=== PATIENT | female | born 1950 | race Caucasian/White ===

== ENCOUNTER 2019-01-28 19:49 | Emergency (ER) | payer MEDICARE ==
[2019-01-28 20:49] VITALS: BP 149/82; PULSE 72; O2SAT 98
--- NOTE | 2019-01-28 21:07 | ERPHSYRPT ---
- History of Present Illness Time Seen by Provider: 01/28/19 20:49 Source: patient Patient Subjective Stated Complaint: pt reports pain, numbness, swelling to the left hand, reports hand surgery wednesday 01/[address] Strong at [facility]. states the procedure was to removed a cyst to the dorsal wrist and "shave the bone down". reports she noticed swelling 01/25 but did not contact the surgeon. states the pain got so bad today she could not stand it any longer Triage Nursing Assessment: pt is aox3, pupils perrl, afebrile, resps easy and non labored, right radial pulse strong, left hand/wrist is casted at this time unable to asses pulse, cap refill is < 3 seconds, parethesia noted to the left fingers, skin is warm to touch, skin is intact, mdoerate swelling noted to the dorsal left hand and fingers, yellow/green bruising also noted. Physician History: PATIENT UNDER WENT LEFT WRIST SURGERY ON 01/24/2019, AND COMPLAINS OF FINGER SWELLING AND NUMBNESS 2 DAYS AFTER HER SURGERY. Occurred: days ago (3) Severity of Pain-Max: moderate Severity of Pain-Current: moderate Extremities Pain Location: forearm: left, wrist: left Modifying Factors: Improves With: movement Associated Symptoms: none Allergies/Adverse Reactions: cephalexin monohydrate [From Keflex] Allergy (Verified 01/28/19 20:49) Hives Home Medications: Diclofenac Sodium 75 mg PO BID 01/25/12 [History] Ergocalciferol (Vitamin D2) [Vitamin D] 50,000 unit PO WEEKLY 01/25/12 [History] Guaifenesin [Mucinex] 1,200 mg PO Q12H PRN PRN 01/25/12 [History] Hydrochlorothiazide 25 mg [hydroDIURIL 25 MG] 25 mg PO DAILY 01/25/12 [ History] Hydrocodone Bit/Acetaminophen [Hydrocodon-Acetaminoph 7.5-500] 1 each PO Q4H PRN PRN 01/25/12 [History] Hydrocodone/APAP 5/500 mg [Vicodin 5/500 MG] 1 tab PO Q4HPRN PRN 01/25/12 [ History] Metoprolol Succinate 100 mg [Toprol Xl 100 MG] 100 mg PO BID 01/25/12 [ History] Mu-Vits-Min Th/Lycopene/Lutein [Centrum Silver Tablet] 1 each PO DAILY 01/25/12 [History] Omeprazole 20 MG [Prilosec 20 mg] 20 mg PO DAILY 01/25/12 [History] Venlafaxine HCl [Effexor Xr] 150 mg PO DAILY 01/25/12 [History] Venlafaxine HCl [Effexor Xr] 150 mg PO DAILY 01/25/12 [History] Metoprolol Succinate 100 mg [Toprol Xl 100 MG] BID 01/26/12 [History] Hx Tetanus, Diphtheria Vaccination/Date Given: Yes Hx Influenza Vaccination/Date Given: No Hx Pneumococcal Vaccination/Date Given: No Immunizations Up to Date: Yes - Review of Systems Musculoskeletal: Joint Pain, Other (SWOLLEN FINGERS) - Past Medical History Pertinent Past Medical History: Yes Neurological History: Migraines, Peripheral Neuropathy ENT History: Cataracts Cardiac History: Hypertension Respiratory History: No Pertinent History Endocrine Medical History: Diabetes Type II, Other Musculoskeletal History: Osteoarthritis GI Medical History: GERD History: No Pertinent History Psycho-Social History: Depression Female Reproductive Disorders: No Pertinent History Other Medical History: nodules on thyroid, did have problems with her kidneys in the past. - Past Surgical History Past Surgical History: Yes Neuro Surgical History: No Pertinent History Cardiac: No Pertinent History Respiratory: No Pertinent History Gastrointestinal: No Pertinent History Genitourinary: No Pertinent History Musculoskeletal: Orthopedic Surgery, Other Female Surgical History: No Pertinent History Other Surgical History: LT WRIST X2. hand surgery 01/24/19 - Social History Smoking Status: Never smoker Drug Use: none Patient Lives Alone: Yes - Female History Hx Now: No - Nursing Vital Signs Nursing Vital Signs: Initial Vital Signs Temperature 98.6 F 01/28/19 20:37 Pulse Rate 72 01/28/19 20:37 Respiratory Rate 18 01/28/19 20:37 Blood Pressure 149/82 01/28/19 20:37 O2 Sat by Pulse Oximetry 98 01/28/19 20:37 Pain Scale Pain Intensity 10 - Physical Exam General Appearance: no apparent distress Hand Exam: swelling (IN ALL FINGERS, FULL RANGE OF MOTION ALL DIGITS, SENSORY INTACT TO LIGHT TOUCH AND PINPRICK, DORSAL AND VOLAR SPLINT INTACT WITH MARISSA BANDAGE) SpO2: 98 - Progress Progress Note: 01/28/19 21:13 ADMINISTERED ARM SLING - Departure Departure Disposition: Home Clinical Impression: POST OPERATIVE WRIST SURGERY, LEFT WRIST PAIN Condition: Stable Critical Care Time: No Referrals: DOCTOR,NO FAMILY [Primary Care Provider] - Additional Instructions: FOLLOWUP WITH YOUR HAND SURGEON TOMORROW SCHEDULED FOR EVALUATION. WEAR ARM SLING FOR COMFORT. ELEVATE HAND WHILE SITTING OR SUPINE POSITION.
== END 2019-01-28 21:21 | disposition home or self-care (01) ==
LOC: ED 19:49
DX: M25.532 Pain in left wrist (principal); G89.18 Other acute postprocedural pain; M79.89 Other specified soft tissue disorders
CPT/HCPCS: 99283

== ENCOUNTER 2024-09-10 13:00 | Emergency (ER) | payer MEDICARE ==
--- NOTE | 2024-09-10 13:25 | ERPHSYRPT ---
- History of Present Illness Time Seen by Provider: 09/10/24 13:25 Historian: patient Exam Limitations: no limitations Physician History: This is a thin 74-year-old white female patient brought into the emergency department by private vehicle and dropped off by her neighbor in the apartment complex she lives in. Patient is giving the nurse and myself conflicting prima ry reasons why the patient is here. She told the nurse that she has headache and fatigue. There is been diarrhea for the last 3 weeks intermittently. She told me that she has a little bit of chest pain on the left side that is nonradiating and described as an ache. She states she has not had a cough and she has not had fever. Patient has a history of depression, gastroesophageal reflux disease, hypertension, migraine headaches, peripheral neuropathy, COPD, arrhythmias and diabetes Timing/Duration: today Activities at Onset: none Quality: aching (Left anterior chest) Abdominal Pain Onset Location: other Pain Radiation: no radiation ( nonradiating) Severity of Pain-Max: none (No abdominal pain) Severity of Pain-Current: none Modifying Factors: Worsens With: vomiting Associated Symptoms: diarrhea, headache, weakness, other (Body aches), No vomiting Previous symptoms: no prior history, no recent treatment Allergies/Adverse Reactions: cephalexin monohydrate [From Keflex] Allergy (Verified 09/10/24 13:30) Hives Home Medications: Diclofenac Sodium 75 mg PO BID 01/25/12 [History] Ergocalciferol (Vitamin D2) [Vitamin D] 50,000 unit PO WEEKLY 01/25/12 [History] Guaifenesin [Mucinex] 1,200 mg PO Q12H PRN PRN 01/25/12 [History] Hydrochlorothiazide 25 mg [hydroDIURIL 25 MG] 25 mg PO DAILY 01/25/12 [History] Hydrocodone/APAP 5/500 mg [Vicodin 5/500 MG] 1 tab PO Q4HPRN PRN 01/25/12 [History] Hydrocodone/Acetaminophen [Hydrocodon-Acetaminoph 7.5-500] 1 each PO Q4H PRN PRN 01/25/12 [History] Metoprolol Succinate 100 mg [Toprol Xl 100 MG] 100 mg PO BID 01/25/12 [History] Mu-Vits-Min Th/Lycopene/Lutein [Centrum Silver Tablet] 1 each PO DAILY 01/25/12 [History] Omeprazole 20 MG [Prilosec 20 mg] 20 mg PO DAILY 01/25/12 [History] Venlafaxine HCl [Effexor Xr] 150 mg PO DAILY 01/25/12 [History] Venlafaxine HCl [Effexor Xr] 150 mg PO DAILY 01/25/12 [History] Metoprolol Succinate 100 mg [Toprol Xl 100 MG] BID 01/26/12 [History] Hx Tetanus, Diphtheria Vaccination/Date Given: Yes Hx Influenza Vaccination/Date Given: No Hx Pneumococcal Vaccination/Date Given: No Travel Risk - International Travel Have you traveled outside of the country in past 3 weeks: No - Emerging Infectious Disease Are you exhibiting symptoms associated with any current EIDs: No - Review of Systems Constitutional: Fatigue, Weakness Eyes: No Symptoms Ears, Nose, & Throat: No Symptoms Respiratory: No Symptoms Cardiac: Chest Pain (Left anterior nonradiating ache) Abdominal/Gastrointestinal: No Symptoms Genitourinary Symptoms: No Symptoms Musculoskeletal: No Symptoms Skin: No Symptoms Neurological: No Symptoms Psychological: No Symptoms Endocrine: No Symptoms Hematologic/Lymphatic: No Symptoms Immunological/Allergic: No Symptoms All Other Systems: Reviewed and Negative - Past Medical History Pertinent Past Medical History: Yes Neurological History: Migraines, Peripheral Neuropathy ENT History: Cataracts Cardiac History: Arrhythmia Respiratory History: COPD Endocrine Medical History: Diabetes Type II Musculoskeletal History: Arthritis GI Medical History: GERD History: No Pertinent History Psycho-Social History: Depression Female Reproductive Disorders: No Pertinent History Other Medical History: nodules on thyroid, did have problems with her kidneys in the past. - Past Surgical History Past Surgical History: Yes Neuro Surgical History: No Pertinent History Cardiac: No Pertinent History Respiratory: No Pertinent History Gastrointestinal: No Pertinent History Genitourinary: No Pertinent History Musculoskeletal: Orthopedic Surgery, Other Female Surgical History: No Pertinent History Other Surgical History: LT WRIST X2. hand surgery 01/24/19 - Social History Smoking Status: Never smoker Drug Use: none Patient Lives Alone: Yes - Nursing Vital Signs Nursing Vital Signs: Initial Vital Signs Temperature 98.8 F 09/10/24 13:12 Pulse Rate 48 L 09/10/24 13:12 Respiratory Rate 20 09/10/24 13:12 Blood Pressure 142/64 09/10/24 13:12 O2 Sat by Pulse Oximetry 98 09/10/24 13:12 Pain Scale Pain Intensity 5 - Physical Exam General Appearance: no apparent distress, alert, thin Eye Exam: PERRL/EOMI, eyes nml inspection Ears, Nose, Throat Exam: normal ENT inspection, moist mucous membranes Neck Exam: normal inspection, non-tender, supple, full range of motion Respiratory Exam: normal breath sounds, lungs clear, airway intact, No chest tenderness, No respiratory distress Cardiovascular Exam: regular rate/rhythm, normal heart sounds, normal peripheral pulses Gastrointestinal/Abdomen Exam: soft, normal bowel sounds, No tenderness Pelvic Exam: not done Rectal Exam: not done Back Exam: normal inspection, normal range of motion, No CVA tenderness, No vertebral tenderness Extremity Exam: normal inspection, normal range of motion, pelvis stable Neurologic Exam: alert, cooperative, combustion analyst II-XII nml as tested, nml cerebellar function, nml station & gait, sensation nml, other (She is oriented to self and location. She is somewhat confused on dates and timings ) Skin Exam: normal color, warm, dry Lymphatic Exam: No adenopathy SpO2 Interpretation: normal O2 Delivery: Room Air - Course Nursing assessment & vital signs reviewed: Yes Ordered Tests: Active Orders 24 hr Category Date Time Status EKG-ER Only STAT Care 09/10/24 13:50 Active IV Insertion STAT Care 09/10/24 13:50 Active HEAD WITHOUT CONTRAST [CT] Stat Exams 09/10/24 14:25 Completed BLOOD CULTURE Stat Lab 09/10/24 14:09 Received CBC W DIFF Stat Lab 09/10/24 14:00 Completed CMP Stat Lab 09/10/24 14:00 Completed MONO SCREEN Stat Lab 09/10/24 14:04 Completed TROPONIN Q4H Lab 09/10/24 14:00 Completed TROPONIN Q4H Lab 09/10/24 18:00 Ordered TROPONIN Q4H Lab 09/10/24 22:00 Ordered UA W/RFX UR CULTURE Stat Lab 09/10/24 14:18 Completed Medication Summary Generic Name Dose Route Start Last Admin Trade Name Freq PRN Reason Stop Dose Admin Sodium Chloride 1,000 mls @ 250 mls/hr 09/10/24 14:00 09/10/24 13:57 Sodium Chloride 0.9% 1000 Ml IV 10/10/24 13:59 250 mls/hr .Q4H SHELLEY Administration Discontinued Medications Generic Name Dose Route Start Last Admin Trade Name Freq PRN Reason Stop Dose Admin Azithromycin 500 mg 09/10/24 15:40 Azithromycin 250 Mg Tablet PO 09/10/24 15:41 STAT ONE Sodium Chloride Confirm 09/10/24 13:55 Sodium Chloride 0.9% 250 Ml Administered 09/10/24 13:56 Dose 250 mls @ ud IV .STK-MED ONE Potassium Chloride 20 meq 09/10/24 15:40 Potassium Chloride Tab 10 Meq Tab PO 09/10/24 15:41 STAT ONE Lab/Rad Data: Laboratory Result Diagrams 09/10/24 14:00 09/10/24 14:00 Laboratory Results 09/10/24 09/10/24 09/10/24 Range/Units 14:18 14:05 14:05 WBC (3.98-10.04) x10^3/uL RBC (3.93-5.22) x10^6/uL Hgb (11.2-15.7) g/dL Hct (34.1-44.9) % MCV (79.4-94.8) fL MCH (25.6-32.2) pg MCHC (32.2-35.5) g/dL RDW (11.7-14.4) % Plt Count (182-369) x10^3/uL MPV (9.4-12.3) fL Gran % (34.0-71.1) % Immature Gran % (Auto) (0.001-0.429) % Nucleat RBC Rel Count (0.00-0.2) % Eos # (Auto) (0.04-0.36) x10^3/uL Immature Gran # (Auto) (0.001-0.031) x10^3u/L Absolute Lymphs (auto) (1.18-3.74) x10^3/uL Absolute Monos (auto) (0.24-0.86) x10^3/uL Absolute Nucleated RBC (0.00-0.012) x10^3u/L Lymphocytes % (19.3-51.7) % Monocytes % (4.7-12.5) % Eosinophils % (0.7-5.8) % Basophils % (0.1-1.2) % Absolute Granulocytes (1.56-6.13) x10^3/uL Basophils # (0.01-0.08) x10^3/uL Sodium (135-145) mmol/L Potassium (3.5-5.1) mmol/L Chloride (98-107) mmol/L Carbon Dioxide (22-30) mmol/L Anion Gap (5-15) MEQ/L BUN (7-17) mg/dL Creatinine (0.52-1.04) mg/dL Estimated GFR ML/MIN Glucose (74-106) mg/dL Calcium (8.4-10.2) mg/dL Total Bilirubin (0.2-1.3) mg/dL AST (14-36) U/L ALT (0-35) U/L Alkaline Phosphatase (38-126) U/L Troponin I (0.000-0.033) ng/mL Serum Total Protein (6.3-8.2) g/dL Albumin (3.5-5.0) g/dL Urine Color Yellow (Yellow) Urine Appearance Clear (Clear) Urine pH 6.0 (4.6-8.0) Ur Specific Mclean 1.010 (1.005-1.030) Urine Protein 30 (Negative) Urine Glucose (UA) 100 A (Negative) mg/dL Urine Ketones Negative (Negative) Urine Blood Negative (Negative) Urine Nitrite Negative (Negative) Urine Bilirubin Negative (Negative) Urine Urobilinogen 0.2 (0.2) mg/dL Ur Leukocyte Esterase Trace A (Negative) U Hyaline Cast (Auto) NONE SEEN (0-2) /LPF Urine Microscopic RBC 0-2 (0-5) /HPF Urine Microscopic WBC 0-2 (0-5) /HPF Ur Epithelial Cells None Seen (None Seen) /HPF Urine Bacteria None Seen (None Seen) /HPF Urine Culture Reflexed YES (NO) Monoscreen (NEGATIVE) Influenza Type A Ag NEGATIVE (NEGATIVE) Influenza Type B Ag NEGATIVE (NEGATIVE) RSV (PCR) NEGATIVE (NEGATIVE) SARS-CoV-2 (PCR) NEGATIVE (NEGATIVE) Group A Strep Antibody NOT DETECTED (NEGATIVE) 09/10/24 09/10/24 09/10/24 Range/Units 14:04 14:00 14:00 WBC (3.98-10.04) x10^3/uL RBC (3.93-5.22) x10^6/uL Hgb (11.2-15.7) g/dL Hct (34.1-44.9) % MCV (79.4-94.8) fL MCH (25.6-32.2) pg MCHC (32.2-35.5) g/dL RDW (11.7-14.4) % Plt Count (182-369) x10^3/uL MPV (9.4-12.3) fL Gran % (34.0-71.1) % Immature Gran % (Auto) (0.001-0.429) % Nucleat RBC Rel Count (0.00-0.2) % Eos # (Auto) (0.04-0.36) x10^3/uL Immature Gran # (Auto) (0.001-0.031) x10^3u/L Absolute Lymphs (auto) (1.18-3.74) x10^3/uL Absolute Monos (auto) (0.24-0.86) x10^3/uL Absolute Nucleated RBC (0.00-0.012) x10^3u/L Lymphocytes % (19.3-51.7) % Monocytes % (4.7-12.5) % Eosinophils % (0.7-5.8) % Basophils % (0.1-1.2) % Absolute Granulocytes (1.56-6.13) x10^3/uL Basophils # (0.01-0.08) x10^3/uL Sodium 134 L (135-145) mmol/L Potassium 3.3 L (3.5-5.1) mmol/L Chloride 103 (98-107) mmol/L Carbon Dioxide 18 L (22-30) mmol/L Anion Gap 15.7 H (5-15) MEQ/L BUN 10 (7-17) mg/dL Creatinine 0.66 (0.52-1.04) mg/dL Estimated GFR 93.1 ML/MIN Glucose 186 H (74-106) mg/dL Calcium 9.3 (8.4-10.2) mg/dL Total Bilirubin 0.50 (0.2-1.3) mg/dL AST 242 H (14-36) U/L ALT 210 H (0-35) U/L Alkaline Phosphatase 153 H (38-126) U/L Troponin I < 0.012 (0.000-0.033) ng/mL Serum Total Protein 6.2 L (6.3-8.2) g/dL Albumin 3.6 (3.5-5.0) g/dL Urine Color (Yellow) Urine Appearance (Clear) Urine pH (4.6-8.0) Ur Specific Mclean (1.005-1.030) Urine Protein (Negative) Urine Glucose (UA) (Negative) mg/dL Urine Ketones (Negative) Urine Blood (Negative) Urine Nitrite (Negative) Urine Bilirubin (Negative) Urine Urobilinogen (0.2) mg/dL Ur Leukocyte Esterase (Negative) U Hyaline Cast (Auto) (0-2) /LPF Urine Microscopic RBC (0-5) /HPF Urine Microscopic WBC (0-5) /HPF Ur Epithelial Cells (None Seen) /HPF Urine Bacteria (None Seen) /HPF Urine Culture Reflexed (NO) Monoscreen NEGATIVE (NEGATIVE) Influenza Type A Ag (NEGATIVE) Influenza Type B Ag (NEGATIVE) RSV (PCR) (NEGATIVE) SARS-CoV-2 (PCR) (NEGATIVE) Group A Strep Antibody (NEGATIVE) 09/10/24 Range/Units 14:00 WBC 8.8 (3.98-10.04) x10^3/uL RBC 4.53 (3.93-5.22) x10^6/uL Hgb 13.1 (11.2-15.7) g/dL Hct 37.8 (34.1-44.9) % MCV 83.4 (79.4-94.8) fL MCH 28.9 (25.6-32.2) pg MCHC 34.7 (32.2-35.5) g/dL RDW 12.8 (11.7-14.4) % Plt Count 323 (182-369) x10^3/uL MPV 9.5 (9.4-12.3) fL Gran % 76.3 H (34.0-71.1) % Immature Gran % (Auto) 0.3 (0.001-0.429) % Nucleat RBC Rel Count 0.0 (0.00-0.2) % Eos # (Auto) 0.20 (0.04-0.36) x10^3/uL Immature Gran # (Auto) 0.03 (0.001-0.031) x10^3u/L Absolute Lymphs (auto) 1.24 (1.18-3.74) x10^3/uL Absolute Monos (auto) 0.54 (0.24-0.86) x10^3/uL Absolute Nucleated RBC 0.00 (0.00-0.012) x10^3u/L Lymphocytes % 14.1 L (19.3-51.7) % Monocytes % 6.1 (4.7-12.5) % Eosinophils % 2.3 (0.7-5.8) % Basophils % 0.9 (0.1-1.2) % Absolute Granulocytes 6.71 H (1.56-6.13) x10^3/uL Basophils # 0.08 (0.01-0.08) x10^3/uL Sodium (135-145) mmol/L Potassium (3.5-5.1) mmol/L Chloride (98-107) mmol/L Carbon Dioxide (22-30) mmol/L Anion Gap (5-15) MEQ/L BUN (7-17) mg/dL Creatinine (0.52-1.04) mg/dL Estimated GFR ML/MIN Glucose (74-106) mg/dL Calcium (8.4-10.2) mg/dL Total Bilirubin (0.2-1.3) mg/dL AST (14-36) U/L ALT (0-35) U/L Alkaline Phosphatase (38-126) U/L Troponin I (0.000-0.033) ng/mL Serum Total Protein (6.3-8.2) g/dL Albumin (3.5-5.0) g/dL Urine Color (Yellow) Urine Appearance (Clear) Urine pH (4.6-8.0) Ur Specific Mclean (1.005-1.030) Urine Protein (Negative) Urine Glucose (UA) (Negative) mg/dL Urine Ketones (Negative) Urine Blood (Negative) Urine Nitrite (Negative) Urine Bilirubin (Negative) Urine Urobilinogen (0.2) mg/dL Ur Leukocyte Esterase (Negative) U Hyaline Cast (Auto) (0-2) /LPF Urine Microscopic RBC (0-5) /HPF Urine Microscopic WBC (0-5) /HPF Ur Epithelial Cells (None Seen) /HPF Urine Bacteria (None Seen) /HPF Urine Culture Reflexed (NO) Monoscreen (NEGATIVE) Influenza Type A Ag (NEGATIVE) Influenza Type B Ag (NEGATIVE) RSV (PCR) (NEGATIVE) SARS-CoV-2 (PCR) (NEGATIVE) Group A Strep Antibody (NEGATIVE) - Progress Progress: unchanged Progress Note: 09/10/24 14:34 My decision making and the assignment of moderate complexity to this patient's medical issue today is based on review of the patient's past medical history, review of patient medication list, reviewed patient drug allergy list, history present dose and physical findings on examination. The workup in this patient includes viral swabs, CBC, CMP, twelve-lead EKG, urinalysis, CT scan of the head without contrast, amylase and lipase. Differential diagnosis includes was not limited to dehydration, urinary tract infection, acute intracranial abnormality, electrolyte abnormalities, arrhythmia , anemia 09/10/24 15:41 I interpreted the patient's laboratory data results. Based on the laboratory data results, the patient has a mild hypokalemia. CT scan of the head without contrast was interpreted by the radiologist and I reviewed the impression. The impression states atrophy and degenerative micro ischemia within normal limits. 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 No acute intracranial abnormalities. Incidental finding of right maxillary sinus disease. Counseled pt/family regarding: lab results, diagnosis, rad results Medical Desision Making - Diagnostic Testing Diagnostic test were ordered, analyzed, and reviewed by me: Yes Radiological Interpretation: Reviewed by me, Teleradiologist Report - Risk of complications The pt has a mod risk of morbidity or mortality based on: Need for prescription drug management - Departure Departure Disposition: Home Clinical Impression: Sinusitis, Hypokalemia Condition: Stable Critical Care Time: No Referrals: DOCTOR,NO FAMILY [NON-STAFF PHY W/O PRIVILEGES] - Follow up/PCP as directed Additional Instructions: Drink plenty of fluids. Take your antibiotics and other medications as prescribed. Call your primary care provider today, 09/10/2024 to make arrangements for follow-up appointment to be seen in the next 3 to 5 days. Prescriptions: Azithromycin 250 mg [Zithromax 250 MG TABLET] 250 mg PO ZPACK #4 tablet
[2024-09-10 13:43] VITALS: TEMP 98.8
[2024-09-10] MEDS ORDERED: Sodium Chloride 0.9% 250 ML 0 ML IV ONE (13:55)
[2024-09-10] MEDS: Sodium Chloride 0.9% 1000 ML 1,000 ML IV SCH (13:57)
[2024-09-10] MEDS ORDERED: Sodium Chloride 0.9% 1000 ML 1,000 ML ONE (13:57)
[2024-09-10 14:16] LABS: Absolute Neutrophil Ct (ANC) 6.71 x10^3/uL (1.56-6.13); BASOPHIL % 0.9 % (0.1-1.2); Basophil (Absolute #) 0.08 x10^3/uL (0.01-0.08); Eosinophil % 2.3 % (0.7-5.8); Hematocrit 37.8 % (34.1-44.9); Hemoglobin 13.1 g/dL (11.2-15.7); IMMATURE GRAN # 0.03 x10^3u/L (0.001-0.031); IMMATURE GRAN % 0.3 % (0.001-0.429); Lymphocyte (Absolute #) 1.24 x10^3/uL (1.18-3.74); Lymphocytes % 14.1 % (19.3-51.7); Mean Cell Volume 83.4 fL (79.4-94.8); Mean Corpuscular Hemoglobin 28.9 pg (25.6-32.2); Mean Corpuscular Hgb Concent. 34.7 g/dL (32.2-35.5); Mean Platelet Volume 9.5 fL (9.4-12.3); Monocyte (Absolute #) 0.54 x10^3/uL (0.24-0.86); Monocytes % 6.1 % (4.7-12.5); Neutrophil % 76.3 % (34.0-71.1); Platelet Count 323 x10^3/uL (182-369); Red Blood Count 4.53 x10^6/uL (3.93-5.22); Red Cell Distribution Width 12.8 % (11.7-14.4); White Blood Count 8.8 x10^3/uL (3.98-10.04)
[2024-09-10 14:29] LABS: Appearance Clear (Clear); Bacteria None Seen /HPF (None Seen); Bilirubin Negative (Negative); Blood Negative (Negative); Epithelial Cells None Seen /HPF (None Seen); Glucose, Urine 100 mg/dL (Negative); Hyaline Casts NONE SEEN /LPF (0-2); Ketones Negative (Negative); Leukocyte Esterase Trace (Negative); Nitrite Negative (Negative); Protein,Urine Dip 30 (Negative); RBC 0-2 /HPF (0-5); Urobilinogen 0.2 mg/dL (0.2); WBC 0-2 /HPF (0-5)
[2024-09-10 14:30] LABS: ALBUMIN 3.6 g/dL (3.5-5.0); ANION GAP 15.7 MEQ/L (5-15); BILIRUBIN,TOTAL 0.5 mg/dL (0.2-1.3); Calcium 9.3 mg/dL (8.4-10.2); Creatinine 1 0.66 mg/dL (0.52-1.04); EST GLOMERULAR FILTRATION RATE 93.1 ML/MIN; Potassium 3.3 mmol/L (3.5-5.1); Total Protein 6.2 g/dL (6.3-8.2)
[2024-09-10 14:51] VITALS: O2SAT 100
[2024-09-10 14:55] LABS: INFLUENZA A NEGATIVE (NEGATIVE); INFLUENZA B NEGATIVE (NEGATIVE); RESPIRATORY SYNCTIAL VIRUS NEGATIVE (NEGATIVE); SARS-CoV-2 Xpert Express NEGATIVE (NEGATIVE)
--- NOTE | 2024-09-10 15:28 | XRAY ---
Indication: Confusion. Multiple contiguous images obtained through the head without contrast. Comparison: None Age-appropriate global atrophy with minimal periventricular degenerative micro-ischemia. Right insula demonstrates 1 cm focus remote infarct. No acute intracranial hemorrhage, abnormal extra-axial fluid collection, or mass effect. Fourth ventricle is midline without hydrocephalus. English-white matter differentiation preserved. Bony calvarium intact. Near complete opacification right maxillary sinus. Mastoid air cells are clear. Impression: Atrophy and degenerative micro-ischemia within normal limits. Small remote infarct right insula. No acute intracranial abnormalities. Incidental right maxillary sinus disease.
[2024-09-10] MEDS ORDERED: Zithromax 250 MG TABLET ONE (15:54)
[2024-09-10] MEDS ORDERED: Klor Con ONE (15:54)
[2024-09-10] MEDS: Klor Con PO ONE (15:55)
[2024-09-10] MEDS: Zithromax 250 MG TABLET PO ONE (15:55)
[2024-09-10 16:13] VITALS: BP 151/64; PULSE 53; RESP 21
== END 2024-09-10 16:18 | disposition home or self-care (01) ==
LOC: ED 13:00
DX: E87.6 Hypokalemia (principal); J32.0 Chronic maxillary sinusitis; R07.9 Chest pain, unspecified; R51.9 Headache, unspecified; R53.83 Other fatigue; I10 Essential (primary) hypertension; E11.42 Type 2 diabetes mellitus with diabetic polyneuropathy; Z79.899 Other long term (current) drug therapy
CPT/HCPCS: 0241U; 36415; 70450; 80053; 81001; 84484; 85025; 86308; 87040; 87651; 99285; 99284; A9270-GY

== ENCOUNTER 2024-12-31 19:16 | Emergency (ER) | payer MEDICARE ==
--- NOTE | 2024-12-31 19:22 | ERPHSYRPT ---
- History of Present Illness Time Seen by Provider: 12/31/24 19:21 Historian: patient, EMS Exam Limitations: no limitations Physician History: This is a 74-year-old white female patient brought to the emergency department by the science education professor service secondary to multiple episodes of vomiting. At approximately 4:00 PM, patient ate at a soup kitchen sponsored by a [employer]. Within the last hour she has had intractable vomiting. She denies chest pain. She denies shortness of breath. Patient has a history of depression, gastroesophageal reflux disease, hypertension, migraine headaches, diabetes, peripheral neuropathy, COPD, arrhythmias and dementia. Timing/Duration: today Activities at Onset: none Abdominal Pain Onset Location: generalized abdomen Pain Radiation: no radiation Severity of Pain-Max: mild (To moderate) Severity of Pain-Current: mild (To moderate) Modifying Factors: Improves With: vomiting Associated Symptoms: loss of appetite, nausea, vomiting, weakness, No chest pain, No diarrhea, No shortness of breath Previous symptoms: no prior history, no recent treatment Allergies/Adverse Reactions: cephalexin monohydrate [From [employer]] Allergy (Verified 12/31/24 19:26) Hives Home Medications: Metoprolol Succinate 100 mg [Toprol Xl 100 MG] 100 mg PO BID 01/25/12 [History] Omeprazole 20 MG [Prilosec 20 mg] 20 mg PO HS 01/25/12 [History] Amlodipine Besylate 5 mg [Norvasc 5 mg] 10 mg PO DAILY 12/31/24 [History] Atorvastatin Calcium [Lipitor] 20 mg PO DAILY 12/31/24 [History] Donepezil HCl 10 mg [Aricept 10 MG] 23 mg PO DAILY 12/31/24 [History] icosapent ethyL [Vascepa] 1 gm PO BID 12/31/24 [History] Hx Tetanus, Diphtheria Vaccination/Date Given: Yes Hx Influenza Vaccination/Date Given: No Hx Pneumococcal Vaccination/Date Given: No Travel Risk - International Travel Have you traveled outside of the country in past 3 weeks: No - Emerging Infectious Disease Are you exhibiting symptoms associated with any current EIDs: No Symptoms: Diarrhea, Headaches/Body Aches/ - Review of Systems Constitutional: Weakness Eyes: No Symptoms Ears, Nose, & Throat: No Symptoms Respiratory: No Symptoms Cardiac: No Symptoms Abdominal/Gastrointestinal: Abdominal Pain, Nausea, Vomiting, Appetite Changes Genitourinary Symptoms: No Symptoms Musculoskeletal: No Symptoms Skin: No Symptoms Neurological: No Symptoms Psychological: No Symptoms Endocrine: No Symptoms Hematologic/Lymphatic: No Symptoms Immunological/Allergic: No Symptoms All Other Systems: Reviewed and Negative - Past Medical History Pertinent Past Medical History: Yes Neurological History: Migraines, Peripheral Neuropathy ENT History: Cataracts Cardiac History: Arrhythmia Respiratory History: COPD Endocrine Medical History: Diabetes Type II Musculoskeletal History: Arthritis GI Medical History: GERD History: No Pertinent History Psycho-Social History: Depression Female Reproductive Disorders: No Pertinent History Other Medical History: nodules on thyroid, did have problems with her kidneys in the past. - Past Surgical History Past Surgical History: Yes Neuro Surgical History: No Pertinent History Cardiac: No Pertinent History Respiratory: No Pertinent History Gastrointestinal: No Pertinent History Genitourinary: No Pertinent History Musculoskeletal: Orthopedic Surgery, Other Female Surgical History: No Pertinent History Other Surgical History: LT WRIST X2. hand surgery 01/24/19 - Social History Smoking Status: Never smoker Drug Use: none Patient Lives Alone: Yes - Social Determinants of Health Will the patient participate in the screening: Yes Do you worry about a steady place to live?: No In the past 12 months,have you had to go without utilities?: No Transportation Issues: No Has anyone in your support network made you feel unsafe?: No Have you or anyone in your house had to go w/o enough food: No Comment: Currently living in the [facility] - Nursing Vital Signs Nursing Vital Signs: Initial Vital Signs Pulse Rate 53 L 12/31/24 19:22 Respiratory Rate 23 12/31/24 19:22 Blood Pressure 210/133 12/31/24 19:22 O2 Sat by Pulse Oximetry 99 12/31/24 19:22 Pain Scale Pain Intensity 0 - Physical Exam General Appearance: mild distress, alert, anxiety Eye Exam: PERRL/EOMI, eyes nml inspection Ears, Nose, Throat Exam: normal ENT inspection, moist mucous membranes Neck Exam: normal inspection, non-tender, supple, full range of motion Respiratory Exam: normal breath sounds, lungs clear, prolonged expirations, No chest tenderness, No respiratory distress Cardiovascular Exam: regular rate/rhythm, normal heart sounds, normal peripheral pulses Gastrointestinal/Abdomen Exam: soft, normal bowel sounds, tenderness (Generalized), guarding (Generalized to palpation), No rebound Pelvic Exam: not done Rectal Exam: not done Back Exam: normal inspection, normal range of motion, No CVA tenderness, No vertebral tenderness Extremity Exam: normal inspection, normal range of motion, pelvis stable Neurologic Exam: alert, oriented x 3, cooperative, 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 II-XII nml as tested, sensation nml Skin Exam: normal color, warm, dry Lymphatic Exam: No adenopathy SpO2 Interpretation: normal O2 Delivery: Room Air - Course Nursing assessment & vital signs reviewed: Yes Ordered Tests: Active Orders 24 hr Category Date Time Status IV Insertion STAT Care 12/31/24 19:38 Active ABDOMEN AND PELVIS W/0 CONTRAS [CT] Stat Exams 12/31/24 19:38 Taken CBC W DIFF Stat Lab 12/31/24 19:45 Completed CMP Stat Lab 12/31/24 19:45 Completed CULTURE,URINE Stat Lab 12/31/24 20:26 Received LIPASE Stat Lab 12/31/24 19:45 Completed Lactic Acid Stat Lab 12/31/24 19:38 Completed UA W/RFX UR CULTURE Stat Lab 12/31/24 20:26 Completed Medication Summary Generic Name Dose Route Start Last Admin Trade Name Freq PRN Reason Stop Dose Admin Levofloxacin/Dextrose 500 mg in 100 mls @ 100 mls/hr 12/31/24 20:59 12/31/24 21:27 Levofloxacin 500mg/100ml D5w IV 12/31/24 21:58 100 ml/hr STAT STA 100 mls/hr Administration Discontinued Medications Generic Name Dose Route Start Last Admin Trade Name Freq PRN Reason Stop Dose Admin Hydromorphone HCl 0.5 mg 12/31/24 19:38 12/31/24 20:07 Hydromorphone 1 Mg/1ml Inj IV 12/31/24 19:39 0.5 mg STAT ONE Administration Hydromorphone HCl Confirm 12/31/24 20:00 Hydromorphone 1 Mg/1ml Inj Administered 12/31/24 20:01 Dose 1 mg .ROUTE .STK-MED ONE Sodium Chloride 1,000 mls @ 999 mls/hr 12/31/24 19:38 12/31/24 20:05 Sodium Chloride 0.9% 1000 Ml IV 12/31/24 20:38 Infused .Q1H1M STA Infusion Sodium Chloride Confirm 12/31/24 20:01 Sodium Chloride 0.9% 1000 Ml Administered 12/31/24 20:02 Dose 1,000 mls @ ud .ROUTE .STK-MED ONE Levofloxacin/Dextrose Confirm 12/31/24 21:25 Levofloxacin 500mg/100ml D5w Administered 12/31/24 21:26 Dose 500 mg in 100 mls @ ud IV .STK-MED ONE Ondansetron HCl 4 mg 12/31/24 19:38 12/31/24 20:06 Ondansetron Hcl 4 Mg/2 Ml Vial IV 12/31/24 19:39 4 mg STAT ONE Administration Ondansetron HCl Confirm 12/31/24 19:59 Ondansetron Hcl 4 Mg/2 Ml Vial Administered 12/31/24 20:00 Dose 4 mg .ROUTE .STK-MED ONE Lab/Rad Data: Laboratory Result Diagrams 12/31/24 19:45 12/31/24 19:45 Laboratory Results 12/31/24 12/31/24 12/31/24 Range/Units 20:26 19:45 19:45 WBC 17.0 H (3.98-10.04) x10^3/uL RBC 5.32 H (3.93-5.22) x10^6/uL Hgb 14.8 (11.2-15.7) g/dL Hct 45.2 H (34.1-44.9) % MCV 85.0 (79.4-94.8) fL MCH 27.8 (25.6-32.2) pg MCHC 32.7 (32.2-35.5) g/dL RDW 11.9 (11.7-14.4) % Plt Count 266 (182-369) x10^3/uL MPV 9.5 (9.4-12.3) fL Gran % 85.1 H (34.0-71.1) % Immature Gran % (Auto) 0.5 H (0.001-0.429) % Nucleat RBC Rel Count 0.0 (0.00-0.2) % Eos # (Auto) 0.27 (0.04-0.36) x10^3/uL Immature Gran # (Auto) 0.09 H (0.001-0.031) x10^3u/L Absolute Lymphs (auto) 1.30 (1.18-3.74) x10^3/uL Absolute Monos (auto) 0.77 (0.24-0.86) x10^3/uL Absolute Nucleated RBC 0.00 (0.00-0.012) x10^3u/L Lymphocytes % 7.7 L (19.3-51.7) % Monocytes % 4.5 L (4.7-12.5) % Eosinophils % 1.6 (0.7-5.8) % Basophils % 0.6 (0.1-1.2) % Absolute Granulocytes 14.45 H (1.56-6.13) x10^3/uL Basophils # 0.10 H (0.01-0.08) x10^3/uL Sodium 137 (135-145) mmol/L Potassium 3.6 (3.5-5.1) mmol/L Chloride 99 (98-107) mmol/L Carbon Dioxide 25 (22-30) mmol/L Anion Gap 16.7 H (5-15) MEQ/L BUN 15 (7-17) mg/dL Creatinine 0.72 (0.52-1.04) mg/dL Estimated GFR 88.8 ML/MIN Glucose 179 H (74-106) mg/dL Lactic Acid (0.4-2.0) Calcium 9.4 (8.4-10.2) mg/dL Total Bilirubin 0.60 (0.2-1.3) mg/dL AST 38 H (14-36) U/L ALT 29 (0-35) U/L Alkaline Phosphatase 83 (38-126) U/L Serum Total Protein 7.6 (6.3-8.2) g/dL Albumin 4.7 (3.5-5.0) g/dL Lipase 125 (23-300) U/L Urine Color Yellow (Yellow) Urine Appearance Clear (Clear) Urine pH 7.0 (4.6-8.0) Ur Specific Regina 1.010 (1.005-1.030) Urine Protein 100 A (Negative) Urine Glucose (UA) Negative (Negative) mg/dL Urine Ketones Negative (Negative) Urine Blood NHT (Negative) Urine Nitrite Negative (Negative) Urine Bilirubin Negative (Negative) Urine Urobilinogen 0.2 (0.2) mg/dL Ur Leukocyte Esterase Moderate A (Negative) U Hyaline Cast (Auto) NONE SEEN (0-2) /LPF Urine Microscopic RBC 11-20 A (0-5) /HPF Urine Microscopic WBC 6-10 A (0-5) /HPF Ur Epithelial Cells None Seen (None Seen) /HPF Urine Bacteria None Seen (None Seen) /HPF Urine Culture Reflexed YES (NO) 12/31/24 Range/Units 19:38 WBC (3.98-10.04) x10^3/uL RBC (3.93-5.22) x10^6/uL Hgb (11.2-15.7) g/dL Hct (34.1-44.9) % MCV (79.4-94.8) fL MCH (25.6-32.2) pg MCHC (32.2-35.5) g/dL RDW (11.7-14.4) % Plt Count (182-369) x10^3/uL MPV (9.4-12.3) fL Gran % (34.0-71.1) % Immature Gran % (Auto) (0.001-0.429) % Nucleat RBC Rel Count (0.00-0.2) % Eos # (Auto) (0.04-0.36) x10^3/uL Immature Gran # (Auto) (0.001-0.031) x10^3u/L Absolute Lymphs (auto) (1.18-3.74) x10^3/uL Absolute Monos (auto) (0.24-0.86) x10^3/uL Absolute Nucleated RBC (0.00-0.012) x10^3u/L Lymphocytes % (19.3-51.7) % Monocytes % (4.7-12.5) % Eosinophils % (0.7-5.8) % Basophils % (0.1-1.2) % Absolute Granulocytes (1.56-6.13) x10^3/uL Basophils # (0.01-0.08) x10^3/uL Sodium (135-145) mmol/L Potassium (3.5-5.1) mmol/L Chloride (98-107) mmol/L Carbon Dioxide (22-30) mmol/L Anion Gap (5-15) MEQ/L BUN (7-17) mg/dL Creatinine (0.52-1.04) mg/dL Estimated GFR ML/MIN Glucose (74-106) mg/dL Lactic Acid 1.4 (0.4-2.0) Calcium (8.4-10.2) mg/dL Total Bilirubin (0.2-1.3) mg/dL AST (14-36) U/L ALT (0-35) U/L Alkaline Phosphatase (38-126) U/L Serum Total Protein (6.3-8.2) g/dL Albumin (3.5-5.0) g/dL Lipase (23-300) U/L Urine Color (Yellow) Urine Appearance (Clear) Urine pH (4.6-8.0) Ur Specific Regina (1.005-1.030) Urine Protein (Negative) Urine Glucose (UA) (Negative) mg/dL Urine Ketones (Negative) Urine Blood (Negative) Urine Nitrite (Negative) Urine Bilirubin (Negative) Urine Urobilinogen (0.2) mg/dL Ur Leukocyte Esterase (Negative) U Hyaline Cast (Auto) (0-2) /LPF Urine Microscopic RBC (0-5) /HPF Urine Microscopic WBC (0-5) /HPF Ur Epithelial Cells (None Seen) /HPF Urine Bacteria (None Seen) /HPF Urine Culture Reflexed (NO) - Progress Progress: improved Progress Note: 12/31/24 19:44 My medical decision making and the assignment of moderate complexity to this patient's medical issue today is based on review of the patient's past medical history, review of the patient's medication list, review the patient drug allergy list, history present illness and physical findings on examination. The workup in this patient includes placement of a intravenous line, infusion of crystalloid solution, infusion of Dilaudid, infusion of Zofran, CBC, CMP, amylase, urinalysis, lactic acid level, CT scan of the abdomen pelvis without contrast. Differential diagnosis includes but is not limited to pancreatitis, colitis, diverticulitis, urinary tract infection, dehydration, food poisoning, bowel obstruction 12/31/24 21:56 Interpreted the patient's laboratory data results. Based on the laboratory data results, the patient does have a leukocytosis and this is contributed by multiple episodes of vomiting as well as a urinary tract infection. She also has a significant urinary tract infection. The CT scan of the abdomen pelvis without contrast was interpreted by the radiologist and I reviewed the impression. The impression states markedly distended urinary bladder. Outlet obstruction versus neurogenic bladder. There is multilevel degenerative disc disease. I spoke with the nurse who is caring for this patient. They performed a straight cath to obtain a urine specimen. This occurred after the patient returned from the CT scan of the abdomen pelvis. She had a significant amount of urine output after placement of the straight catheter. Medical Desision Making - Diagnostic Testing Diagnostic test were ordered, analyzed, and reviewed by me: Yes Radiological Interpretation: Reviewed by me, Teleradiologist Report - Risk of complications The pt has a mod risk of morbidity or mortality based on: Need for prescription drug management - Departure Departure Disposition: Home Clinical Impression: Vomiting, Leukocytosis, Urinary tract infection Condition: Stable Critical Care Time: No Referrals: JUANITA ELIZABETH NP [Primary Care Provider, UNKNOWN] - Follow up/PCP as directed Additional Instructions: Drink plenty of fluids. Start with clear liquids and slowly advance your diet. Avoid fatty greasy spicy foods. Take your antibiotics and other medication as prescribed. Call your prescribing provider tomorrow, 01/01/2025, to make arrangements for follow-up appointment for further evaluation management. Prescriptions: Ondansetron ODT 4 MG [Zofran Odt 4 mg] 4 mg PO Q8H PRN PRN #6 tablet PRN Reason: Vomiting Ciprofloxacin [Cipro 500 MG] 500 mg PO BID #14 tablet
[2024-12-31 19:26] VITALS: TEMP 96.5
[2024-12-31 19:51] LABS: Absolute Neutrophil Ct (ANC) 14.45 x10^3/uL (1.56-6.13); BASOPHIL % 0.6 % (0.1-1.2); Eosinophil % 1.6 % (0.7-5.8); Eosinophil (Absolute #) 0.27 x10^3/uL (0.04-0.36); Hematocrit 45.2 % (34.1-44.9); Hemoglobin 14.8 g/dL (11.2-15.7); IMMATURE GRAN # 0.09 x10^3u/L (0.001-0.031); IMMATURE GRAN % 0.5 % (0.001-0.429); Lymphocytes % 7.7 % (19.3-51.7); Mean Corpuscular Hemoglobin 27.8 pg (25.6-32.2); Mean Corpuscular Hgb Concent. 32.7 g/dL (32.2-35.5); Mean Platelet Volume 9.5 fL (9.4-12.3); Monocyte (Absolute #) 0.77 x10^3/uL (0.24-0.86); Monocytes % 4.5 % (4.7-12.5); Neutrophil % 85.1 % (34.0-71.1); Platelet Count 266 x10^3/uL (182-369); Red Blood Count 5.32 x10^6/uL (3.93-5.22); Red Cell Distribution Width 11.9 % (11.7-14.4)
[2024-12-31] MEDS ORDERED: Zofran 4 MG/2 ML VIAL ONE ×2 (19:59→22:32)
[2024-12-31] MEDS ORDERED: Hydromorphone 1 mg/ml Injection ONE (20:00)
[2024-12-31] MEDS ORDERED: Sodium Chloride 0.9% 1000 ML 1,000 ML ONE (20:01)
[2024-12-31 20:04] LABS: ALBUMIN 4.7 g/dL (3.5-5.0); ANION GAP 16.7 MEQ/L (5-15); BILIRUBIN,TOTAL 0.6 mg/dL (0.2-1.3); Calcium 9.4 mg/dL (8.4-10.2); Creatinine 1 0.72 mg/dL (0.52-1.04); EST GLOMERULAR FILTRATION RATE 88.8 ML/MIN; Potassium 3.6 mmol/L (3.5-5.1); Total Protein 7.6 g/dL (6.3-8.2)
[2024-12-31] MEDS: Sodium Chloride 0.9% 1000 ML 1,000 ML IV STA (20:05)
[2024-12-31] MEDS: Zofran 4 MG/2 ML VIAL IV ONE ×2 (20:06→22:33)
[2024-12-31] MEDS: Hydromorphone 1 mg/ml Injection IV ONE (20:07)
[2024-12-31 20:36] LABS: Appearance Clear (Clear); Bacteria None Seen /HPF (None Seen); Bilirubin Negative (Negative); Blood NHT (Negative); Epithelial Cells None Seen /HPF (None Seen); Glucose, Urine Negative (Negative); Hyaline Casts NONE SEEN /LPF (0-2); Ketones Negative (Negative); Leukocyte Esterase Moderate (Negative); Nitrite Negative (Negative); Protein,Urine Dip 100 (Negative); Urobilinogen 0.2 mg/dL (0.2)
[2024-12-31] MEDS ORDERED: Levofloxacin 500MG/100ML D5W 500 MG/100 ML BAG IV ONE (21:25)
[2024-12-31] MEDS: Levofloxacin 500MG/100ML D5W 500 MG/100 ML BAG IV STA (21:27)
[2024-12-31] MEDS ORDERED: TYLENOL 325 MG ONE (22:13)
[2024-12-31] MEDS: TYLENOL 325 MG PO STA (22:14)
[2024-12-31 22:49] VITALS: BP 174/87; PULSE 67; RESP 21; O2SAT 96
--- NOTE | 2025-01-01 08:47 | XRAY ---
Indication: Pain and vomiting. Multiple contiguous axial images obtained through the abdomen and pelvis without contrast. Comparison: None Lung bases demonstrates mild bibasilar dependent atelectasis and tiny right middle lobe calcified granuloma. No infiltrate or effusion. Heart not enlarged with aortic/mitral valve calcifications. Incidental small right hilar calcified nodes. Noncontrasted stomach and bowel loops appear nonobstructed. Incidental 1 cm calcified uterine fibroid and tiny hepatic/splenic calcified granulomas. Previous cholecystectomy. Urinary bladder is markedly distended concerning for outlet obstruction versus neurogenic bladder. No free fluid/air. Remaining liver, pancreas, spleen, adrenal glands, kidneys, ureters, bladder, and uterus are unremarkable for noncontrast exam. Mild scattered aortic calcifications without AAA. Osseous structures intact with osteopenia, mild/moderate degenerative changes throughout thoracolumbar spine, and minimal levoscoliosis centered at L2. Impression: 1. Markedly distended urinary bladder. Rule out outlet obstruction versus neurogenic bladder. 2. Chronic findings including cardiac valvular calcifications, calcified uterine fibroid, arteriosclerotic disease, chronic bony findings, and old granulomatous disease.
== END 2024-12-31 22:47 | disposition home or self-care (01) ==
LOC: ED 19:16
DX: N39.0 Urinary tract infection, site not specified (principal); D72.829 Elevated white blood cell count, unspecified; R11.2 Nausea with vomiting, unspecified; I10 Essential (primary) hypertension; E11.42 Type 2 diabetes mellitus with diabetic polyneuropathy; Z79.899 Other long term (current) drug therapy
CPT/HCPCS: 36415; 74176; 80053; 81001; 83605; 83690; 85025; 87077; 87086; 87186; 96365; 96375; 96376; 99284; P9612; 96374; 99285; J1171; J1956; J2405; A9270-GY